=== PATIENT | male | born 1950 | race Caucasian/White ===

== ENCOUNTER 2017-09-07 06:22 | Day surgery (SDC) | payer BC, MEDICARE ==
[~2017-09-07 06:22] MED LIST: Midazolam 1 MG/ML 2 ML SDV ONE; fentaNYL 100 MCG/2 ML SDV ONE
[2017-09-07] MEDS ORDERED: Midazolam 1 MG/ML 2 ML SDV IV ONE ×3 (06:23→07:29)
[2017-09-07] MEDS ORDERED: fentaNYL 100 MCG/2 ML SDV IV ONE ×3 (06:23→07:28)
[2017-09-07] MEDS ORDERED: Dextrose 5%-0.45% NaCl 1,000 ML IV SCH (07:00)
--- NOTE | 2017-09-07 10:41 | OR ---
DATE: 09/07/2017 PROCEDURE: Esophagogastroduodenoscopy and multiple pinch biopsies. INSTRUMENT USED: GIF-H180 Olympus video panendoscope. PREMEDICATIONS: No oral topical anesthesia used. Fentanyl 100 mcg intravenous, Versed 2 mg intravenous. The procedure was done under pulse oximetry, BP recording, and residential monitor. INDICATIONS: The patient with known Baeza's esophagus. Esophagogastroduodenoscopy is performed for detection of any active erosive lesions, surveillance biopsies to be taken for any evidence of dysplasia and/or malignancy, endoscopic hemostasis therapy if needed. DESCRIPTION OF PROCEDURE: The scope was passed with ease. Adequate visualization of the esophagus was made from proximal to distal areas. No upper esophageal lesions identified. No distal esophageal stricture. No uphill or downhill esophageal varices. No Leonela-Guzmán tear. No evidence of erosive esophagitis by Izard criteria. No esophageal polyp or tumor mass identified. Proximally encroaching pink columnar epithelium was noted at around 34 cm distal to the oral verge. Sliding hiatal hernia was noted. Four-quadrant biopsies were taken at 2 cm distance apart from the areas 34, 36 and 38 cm distal to the oral verge, and sent for any histopathologic evidence of dysplasia. No proximal gastric varices noted. Gastric fundus examination by retroflexion showed no polypoid lesions. No gastric ulcer, malignant mass, or vascular ectasia identified. Duodenal bulb showed no ulcer. Visualized second part of the duodenum was unremarkable. No bleeding was noted from any of the visualized areas at the completion of examination. Photographs were taken of the duodenal bulb, gastric antrum, fundus, and distal esophagus. IMPRESSION: Baeza's esophagus. The patient tolerated the procedure well. [facility] /[id number]
== END 2017-09-07 09:46 | disposition home or self-care (01) ==
LOC: DL.ENDO 06:22
PROVIDERS: ATTEND Internal Medicine Gastroenterology
DX: K20.9 Esophagitis, unspecified (principal); K22.8 Other specified diseases of esophagus; K44.9 Diaphragmatic hernia without obstruction or gangrene
CPT/HCPCS: 43239; J2250; J3010; J7042

== ENCOUNTER 2020-08-06 06:51 | Day surgery (SDC) | payer MEDICARE, BC ==
[2020-08-06] MEDS ORDERED: Midazolam 1 MG/ML 2 ML SDV IV ONE ×3 (06:52→07:59)
[2020-08-06] MEDS ORDERED: fentaNYL 100 MCG/2 ML SDV IV ONE ×3 (06:52→07:58)
[2020-08-06] MEDS ORDERED: Dextrose 5%-0.45% NaCl 1,000 ML IV SCH (07:30)
--- NOTE | 2020-08-06 09:15 | OR ---
DATE: 08/06/2020 PROCEDURES: Esophagogastroduodenoscopy, narrow-band imaging, magnification views, and multiple pinch biopsies. INSTRUMENT USED: GIF-HQ190 Olympus video panendoscope. PREMEDICATIONS: No oral or topical anesthesia used, fentanyl 100 mcg intravenous, Versed 2 mg intravenous. The procedure was done under pulse oximetry, BP recording, and paratransit operator. INDICATION: The patient with known Baeza esophagus. Surveillance esophagogastroduodenoscopy is performed for detection of any active erosive lesions, Baeza dysplasia and/or malignancy also under consideration, endoscopic hemostasis therapy if needed. PROCEDURE IN DETAIL: The scope was passed with ease. Adequate visualization of the esophagus was made from proximal to distal areas. No upper esophageal lesions identified. No distal esophageal stricture. No uphill or downhill esophageal varices. No Leonela-Guzmán tear. No evidence of erosive esophagitis by Pepin criteria. No esophageal polyp or tumor mass identified. Proximally encroaching pink columnar epithelium was noted at around 36 cm distal to the oral verge, NBI and magnification views were taken, 4-quadrant biopsies were obtained from areas, taken at 36, 38 and 40 cm distal to the oral verge and sent for any histopathologic evidence of dysphagia. No proximal gastric varices noted. Gastric fundus examination by retroflexion showed no polypoid lesions. No gastric ulcer, malignant mass, or vascular ectasia identified. Duodenal bulb showed no ulcer. Visualized second part of the duodenum was unremarkable. No bleeding was noted from any of the visualized areas at the completion of examination. Photographs were taken of the duodenal bulb, gastric antrum, fundus, and distal esophagus. IMPRESSION: Baeza's esophagus. The patient tolerated the procedure well. [facility] /[id number]
== END 2020-08-06 10:10 | disposition home or self-care (01) ==
LOC: DL.ENDO 06:51
PROVIDERS: ATTEND Internal Medicine Gastroenterology
DX: K22.70 Barrett's esophagus without dysplasia (principal); I10 Essential (primary) hypertension; E78.00 Pure hypercholesterolemia, unspecified; K44.9 Diaphragmatic hernia without obstruction or gangrene; K21.0 Gastro-esophageal reflux disease with esophagitis; K57.30 Diverticulosis of large intestine without perforation or abscess without bleeding; N52.9 Male erectile dysfunction, unspecified; F41.1 Generalized anxiety disorder; E79.0 Hyperuricemia without signs of inflammatory arthritis and tophaceous disease; H91.90 Unspecified hearing loss, unspecified ear; Z86.010 Personal history of colon polyps; Z98.890 Other specified postprocedural states; Z90.49 Acquired absence of other specified parts of digestive tract; Z87.891 Personal history of nicotine dependence
CPT/HCPCS: 43239; J2250; J3010; J7042; 88305

== ENCOUNTER 2021-05-29 08:40 | Emergency (ER) | payer MEDICARE, BC ==
--- NOTE | 2021-05-29 08:54 | EDM.PDOC ---
ED HPI GENERAL MEDICAL PROBLEM - General Stated Complaint: [id number] CHEST PAIN STINCE 2 AM Time Seen by Provider: 05/29/21 08:52 Source of Information: Reports: Patient, RN, RN Notes Reviewed History Limitations: Reports: No Limitations - History of Present Illness INITIAL COMMENTS - FREE TEXT/NARRATIVE: Carloz is a 70 y/o male who presents to the ED via personal vehicle with complaints of chest pain. The patient reports he woke at approximately 0200 with chest pain/pressure last night that persisted in severity until about 0530 when he woke his and took Aspirin 325mg PO. Additionally, he noticed shortness of breath and chills with the pain. Upon arrival to this facility he denies chest pain/pressure or shortness of breath. He denies recent illness, fever, shaking chills, palpitations, nausea, vomiting, abdominal pain, dysuria, hematuria, constipation, or diarrhea. His last meal was approximately 1800 last evening. He denies history of tobacco or recreational drug use; he states he has one beer last night with dinner which is not uncommon for him. - Related Data Allergies Allergy/AdvReac Type Severity Reaction Status Date / Time No Known Allergies Allergy Verified 05/29/21 09:08 Home Meds: Home Meds Acetaminophen [Tylenol] 325 - 650 mg PO Q6H PRN 05/26/14 [History] Fluticasone Furoate [Veramyst] 1 spray INGRIS DAILY PRN 05/26/14 [History] Omeprazole [Prilosec] 20 mg PO BID 05/26/14 [History] Simvastatin [Zocor] 10 mg PO BEDTIME 05/26/14 [History] Chlorthalidone 25 mg PO DAILY 07/31/20 [History] Potassium Chloride [Klor-Con 10] 10 meq PO DAILY 07/31/20 [History] Past Medical History HEENT History: Reports: Hard of Hearing, Impaired Vision Cardiovascular History: Reports: High Cholesterol, Hypertension Respiratory History: Reports: None Gastrointestinal History: Reports: Colon Polyp, Diverticulosis, GERD, Hiatal Hernia, Other (See Below) Other Gastrointestinal History: RAMIREZ'S ESOPHAGUS Genitourinary History: Reports: None Musculoskeletal History: Reports: Arthritis, Gout Neurological History: Reports: None Psychiatric History: Reports: Anxiety Endocrine/Metabolic History: Reports: None Hematologic History: Reports: None Immunologic History: Reports: None Oncologic (Cancer) History: Reports: None Dermatologic History: Reports: None - Infectious Disease History Infectious Disease History: Reports: Chicken Pox, Measles, Mumps - Past Surgical History Head Surgeries/Procedures: Reports: None HEENT Surgical History: Reports: None Cardiovascular Surgical History: Reports: None Respiratory Surgical History: Reports: None GI Surgical History: Reports: Appendectomy, Colonoscopy, EGD, Esophageal Dilatation, Hernia, Inguinal, Polypectomy, Other (See Below) Other GI Surgeries/Procedures: s/p esophageal stricture dilatation Male Surgical History: Reports: None Endocrine Surgical History: Reports: None Neurological Surgical History: Reports: None Musculoskeletal Surgical History: Reports: None Oncologic Surgical History: Reports: None Dermatological Surgical History: Reports: None Social & Family History - Caffeine Use Caffeine Use: Reports: Coffee, Tea Caffeine Use Comment: 24oz ED ROS GENERAL - Review of Systems Review Of Systems: Comprehensive ROS is negative, except as noted in HPI. ED EXAM, GENERAL - Physical Exam Exam: See Below Exam Limited By: No Limitations General Appearance: Alert, No Apparent Distress Eye Exam: Bilateral Eye: EOMI, Normal Inspection, PERRL (3mm) Ears: Normal External Exam, Hearing Grossly Normal Nose: Normal Inspection, Normal Mucosa, No Blood Throat/Mouth: Normal Inspection, Normal Lips, Normal Teeth, Normal Gums, Normal Oropharynx, Normal Voice, No Airway Compromise Head: Atraumatic, Normocephalic Neck: Normal Inspection, Supple, Non-Tender, Full Range of Motion Respiratory/Chest: No Respiratory Distress, Lungs Clear, Normal Breath Sounds, No Accessory Muscle Use, Chest Non-Tender Cardiovascular: Normal Peripheral Pulses, Regular Rate, Rhythm, No Edema, No Gallop, No JVD, No Murmur, No Rub Peripheral Pulses: 2+: Radial (L), Radial (R) GI/Abdominal: Normal Bowel Sounds, Soft, Non-Tender, No Distention, No Abnormal Bruit, No Mass, Pelvis Stable (Male) Exam: Deferred Rectal (Males) Exam: Deferred Back Exam: Normal Inspection, Full Range of Motion Extremities: Normal Inspection, Normal Range of Motion, Non-Tender, Normal Capillary Refill, No Pedal Edema Neurological: Alert, Oriented, CN II-XII Intact, Normal Cognition, Normal Gait, Normal Reflexes, No Motor/Sensory Deficits Psychiatric: Normal Affect, Normal Mood Skin Exam: Warm, Dry, Intact, Normal Color, No Rash. No: Cyanosis, Jaundice, Mottled, Pallor #1 Interpretation EKG Date: 05/29/21 Time: 08:49 Rhythm: NSR Rate (Beats/Min): 73 [place]: Normal P-Wave: Present QRS: Normal ST-T: Normal QT: Normal MS/PQ Interval: 0.209 Comparison: NA - No Prior EKG EKG Interpretation Comments: NSR; q-wave in III, No evidence of acute myocardial ischemia Course - Vital Signs Last Recorded V/S: Last Vital Signs Temp 97.4 F 05/29/21 09:04 Pulse 75 05/29/21 09:04 Resp 14 05/29/21 09:04 BP 154/86 H 05/29/21 09:04 Pulse Ox 100 05/29/21 09:04 - Orders/Labs/Meds Orders: Active Orders 24 hr Category Date Time Status EKG 12 Lead [EKG Documentation Completion] [RC] STAT Care 05/29/21 09:58 Active DRUG SCREEN URINE BIORAD [URCHEM] Urgent Lab 05/29/21 08:51 Ordered UA RFX DARBY AND CULT IF INDIC [URIN] Stat Lab 05/29/21 08:51 Ordered Heparin Sodium/0.45% NaCl [Heparin 25,000 Units in 1/2 Med 05/29/21 09:45 Active NS 500 ML] 25,000 units in 500 ml IV TITRATE Medication Orders Heparin Sodium/Sodium Chloride (Heparin 25,000 Units In 1/2 Ns 500 Ml) 25,000 units in 500 mls @ 20.031 mls/hr IV TITRATE RUDI; Protocol Last Admin: 05/29/21 09:46 Dose: 12 units/kg/hr, 20.031 mls/hr Documented by: GEMMA Cosigned by: ROBERT Labs: Laboratory Tests 05/29/21 05/29/21 05/29/21 Range/Units 08:59 08:59 08:59 WBC 13.4 H (5.0-10.0) 10^3/uL RBC 5.67 (4.6-6.2) 10^6/uL Hgb 16.4 (14.0-18.0) g/dL Hct 48.0 (40.0-54.0) % MCV 84.7 (80-100) fL MCH 28.9 (27.0-34.0) pg MCHC 34.2 (33.0-35.0) g/dL Plt Count 243 (150-450) 10^3/uL Neut % (Auto) 77.9 H (42.2-75.2) % Lymph % (Auto) 10.6 L (20.5-50.1) % Franklin % (Auto) 9.1 H (2-8) % Eos % (Auto) 2.2 (1.0-3.0) % Baso % (Auto) 0.2 (0.0-1.0) % Sodium 142 (136-145) mmol/L Potassium 3.3 L (3.5-5.1) mmol/L Chloride 101 (98-107) mmol/L Carbon Dioxide 32 (21-32) mmol/L Anion Gap 12.3 (7-13) mEq/L BUN 19 H (7-18) mg/dL Creatinine 0.99 (0.70-1.30) mg/dL Est Cr Clr Drug Dosing TNP Estimated GFR (MDRD) > 60 BUN/Creatinine Ratio 19.2 (No establ ref range) Glucose 117 H (70-99) mg/dL Lactic Acid 1.1 (0.4-2.0) mmol/L Calcium 8.5 (8.5-10.1) mg/dL Magnesium 1.9 (1.8-2.4) mg/dL Total Bilirubin 0.5 (0.2-1.0) mg/dL AST 21 (15-37) U/L ALT 25 (16-63) U/L Alkaline Phosphatase 52 (46-116) U/L Troponin I High Sens 486 H* (<=76) pg/mL C-Reactive Protein 1.9 H (0.0-0.9) mg/dL B-Natriuretic Peptide 22 (0-100) pg/ml Total Protein 7.5 (6.4-8.2) g/dL Albumin 3.6 (3.4-5.0) g/dL Globulin 3.9 Albumin/Globulin Ratio 0.9 Amylase 28 (25-115) U/L Lipase 42 L (73-393) U/L Ethyl Alcohol < 3 (0) mg/dL Meds: Medications Generic Name Dose Route Start Last Admin Trade Name Freq PRN Reason Stop Dose Admin Heparin Sodium/Sodium Chloride 25,000 units in 500 mls @ 20.031 mls/hr 05/29/21 09:45 05/29/21 09:46 Heparin 25,000 Units In 1/2 Ns 500 Ml IV 12 units/kg/hr TITRATE RUDI 20.031 mls/hr Administration Protocol 12 UNITS/KG/HR Discontinued Medications Generic Name Dose Route Start Last Admin Trade Name Carlos A PRN Reason Stop Dose Admin Heparin Sodium (Porcine) 4,000 units 05/29/21 09:33 05/29/21 09:43 Heparin Sodium 5,000 Units/Ml Vial IVPUSH 05/29/21 09:34 4,000 units .BOLUS ONE Administration - Radiology Interpretation Free Text/Narrative:: [facility] Final Radiology Report Call: [phone] assistance Online chat: [email or web address] Name: CARLOZ BAER Age: 70Years M Date: 05/29/2021 SSN: -- : [id number] Study: CR CHEST 1V FRONTAL Requesting Physician: Hillary Dennison Images: 1 Addl Studies: Provided Clinical History: Chest pain Contrast: Contrast Medium: Contrast Amount: Contrast Method: CONFIDENTIALITY STATEMENT This report is intended only for use by the referring physician, and only in accordance with law. If you received this in error, call [phone]. Page 1 of 1 PROCEDURE INFORMATION: Exam: XR Chest Exam date and time: 05/29/2021 9:48 AM Age: 70 years old Clinical indication: Pain; Chest pressure; Additional info: Chest pain TECHNIQUE: Imaging protocol: XR of the chest. Views: 1 view. COMPARISON: No relevant prior studies available. FINDINGS: Lungs: Unremarkable. No consolidation. Pleural spaces: Unremarkable. No pleural effusion. No pneumothorax. Heart/Mediastinum: Unremarkable. No cardiomegaly. Bones/joints: Degenerative arthritis in the shoulders and spine. IMPRESSION: No acute findings Thank you for allowing us to participate in the care of your patient. Dictated and Authenticated by: Kelsey Chowdhury MD 05/29/2021 10:04 AM Central Time ([place] & [place]) - Re-Assessments/Exams Free Text/Narrative Re-Assessment/Exam: 05/29/21 EKG reveals NSR; No evidence of acute myocardial ischemia Troponin 489; WBC 13.8 with left shift. Heparin 4000u and gtt initiated at 12 u/kg/hr. No additional ASA administered. Case discussed with Dr. Durand, hospitalist at [facility] in [place], who kindly accepted patient for transfer. Findings of examination, lab work, and imaging reviewed with patient and . Discussed need for transfer to a facility with interventional cardiology capability. Patient and verbalized understanding and agreement with the plan of care. Departure - Departure Time of Disposition: 10:15 Disposition: DC/Tfer to [facility] 02 Reason for Transfer *Q: Primary PCI Indicated Condition: Fair Clinical Impression: NSTEMI (non-ST elevated myocardial infarction) Forms: Interfacility Transfer EMTALA Sepsis Event Note (ED) - Focused Exam Vital Signs: Vital Signs Temp Pulse Resp BP Pulse Ox 05/29/21 09:04 97.4 F 75 14 154/86 H 100 - My Orders Last 24 Hours: My Active Orders 05/29/21 08:51 DRUG SCREEN URINE BIORAD [URCHEM] Urgent UA RFX DARBY AND CULT IF INDIC [URIN] Stat 05/29/21 09:45 Heparin Sodium/0.45% NaCl [Heparin 25,000 Units in 1/2 NS 500 ML] 25,000 units in 500 ml IV TITRATE 05/29/21 09:58 EKG 12 Lead [EKG Documentation Completion] [RC] STAT - Assessment/Plan Last 24 Hours: My Active Orders 05/29/21 08:51 DRUG SCREEN URINE BIORAD [URCHEM] Urgent UA RFX DARBY AND CULT IF INDIC [URIN] Stat 05/29/21 09:45 Heparin Sodium/0.45% NaCl [Heparin 25,000 Units in 1/2 NS 500 ML] 25,000 units in 500 ml IV TITRATE 05/29/21 09:58 EKG 12 Lead [EKG Documentation Completion] [RC] STAT
[2021-05-29 09:30] LABS: ANION GAP 12.3 mEq/L (7-13); CHLORIDE,CL 101 mmol/L (98-107); SODIUM,NA 142 mmol/L (136-145)
[2021-05-29] MEDS ORDERED: Heparin Sodium 5,000 Units/ML Vial IVPUSH ONE (09:33)
[2021-05-29] MEDS ORDERED: Heparin Sodium/0.45% NaCl 25,000 UNITS/500 ML BAG IV SCH (09:45)
--- NOTE | 2021-05-29 10:05 | CR ---
PROCEDURE INFORMATION: Exam: XR Chest Exam date and time: 05/29/2021 9:48 AM Age: 70 years old Clinical indication: Pain; Chest pressure; Additional info: Chest pain TECHNIQUE: Imaging protocol: XR of the chest. Views: 1 view. COMPARISON: No relevant prior studies available. FINDINGS: Lungs: Unremarkable. No consolidation. Pleural spaces: Unremarkable. No pleural effusion. No pneumothorax. Heart/Mediastinum: Unremarkable. No cardiomegaly. Bones/joints: Degenerative arthritis in the shoulders and spine. IMPRESSION: No acute findings
== END 2021-05-29 10:11 ==
LOC: DL.ED 08:40
DX: I21.4 Non-ST elevation (NSTEMI) myocardial infarction (principal); E78.00 Pure hypercholesterolemia, unspecified; I10 Essential (primary) hypertension; K21.9 Gastro-esophageal reflux disease without esophagitis; Z79.899 Other long term (current) drug therapy
CPT/HCPCS: 36415; 71045; 80053; 80307; 82150; 83605; 83690; 83735; 83880; 84484; 85025; 86140; 93005; 96365; 99285; J1644

== ENCOUNTER 2022-05-01 21:30 | Emergency (ER) | payer MEDICARE, BC ==
[2022-05-01 22:48] LABS: ANION GAP 11.6 mEq/L (7-13); CHLORIDE,CL 102 mmol/L (98-107); SODIUM,NA 134 mmol/L (136-145)
[2022-05-01 23:00] LABS: ESTIMATED GFR > 60
[2022-05-01 23:47] LABS: CORONAVIRUS COVID-19 NAA POSITIVE (NEGATIVE)
== END 2022-05-02 00:37 | disposition home or self-care (01) ==
LOC: DL.ED 21:30
DX: U07.1 COVID-19 (principal); E78.00 Pure hypercholesterolemia, unspecified; I10 Essential (primary) hypertension; K21.9 Gastro-esophageal reflux disease without esophagitis; Z79.01 Long term (current) use of anticoagulants; Z79.899 Other long term (current) drug therapy; Z87.891 Personal history of nicotine dependence
CPT/HCPCS: 0240U; 36415; 71045; 80053; 81001; 83605; 84484; 85025; 85379; 85610; 87040; 93005; 93010; 99284

== ENCOUNTER 2025-01-03 15:01 | Emergency (ER) | payer MEDICARE, BC ==
[2025-01-03] MEDS: Oxymetazoline 0.05% Nasal Spray 30 ML Bottle NAS ONE (15:38)
== END 2025-01-03 16:11 | disposition home or self-care (01) ==
LOC: DL.ED 15:01
DX: J10.1 Influenza due to other identified influenza virus with other respiratory manifestations (principal); I10 Essential (primary) hypertension; E78.00 Pure hypercholesterolemia, unspecified; K21.9 Gastro-esophageal reflux disease without esophagitis; Z90.49 Acquired absence of other specified parts of digestive tract; Z79.01 Long term (current) use of anticoagulants; Z79.899 Other long term (current) drug therapy
CPT/HCPCS: 87428-QW; 99283; 99284; A9270-GY